=== PATIENT | female | born 2000 | race African-American/Black ===

== ENCOUNTER 2022-02-06 16:32 | Emergency (ER) | payer SELFPAY ==
[~2022-02-06] VITALS: Ht 167.6 cm; Wt 76.8 kg
[2022-02-06 16:40] VITALS: TEMP 98.6
[2022-02-06 17:48] LABS: MUCOUS Present (NOT PRESENT); PH 6 (5-8); URINE APPEARANCE Clear (CLEAR/HAZY); URINE BACTERIA Rare /hpf (NONE SEEN); URINE BILIRUBIN Negative (NEGATIVE); URINE BLOOD Negative (NEGATIVE); URINE COLOR Yellow (YELLOW); URINE GLUCOSE Negative (NEGATIVE); URINE KETONE Negative (NEGATIVE); URINE LEUKOCYTE ESTERASE Trace (NEGATIVE); URINE NITRATE Negative (NEGATIVE); URINE PROTEIN(semi-quant) Negative (NEGATIVE); URINE RBC 0-2 /hpf (0-2); URINE UROBILINOGEN Negative (NEGATIVE)
[2022-02-06 17:53] LABS: COLLECTION METHOD CLEAN CATCH
[2022-02-06 18:10] LABS: BASO % 0.5 % (0.0-2.0); EOS # 0.1 K/mm3 (0.0-0.7); EOS % 1.2 % (0.0-4.0); GRAN # 1.6 K/mm3 (1.4-6.5); GRAN % 40.2 % (42.2-75.2); HEMATOCRIT 39.3 % (35.0-45.0); HEMOGLOBIN 13.1 g/dl (12.0-15.0); LYMPH % 47.9 % (20.0-51.0); MEAN CELL VOLUME 87 fl (80.0-95.0); MEAN CORPUSCULAR HEMOGLOBIN 29 pg (26-32); MEAN CORPUSCULAR HGB CONC 33 g/dl (33.0-37.0); MEAN PLATELET VOLUME 10.4 fl (7.4-10.4); MONO # 0.4 K/mm3 (0.1-0.6); PLATELET COUNT 191 K/mm3 (130-400); RED BLOOD COUNT 4.54 M/mm3 (4.10-5.30)
[2022-02-06 18:32] LABS: ALBUMIN 3.5 gm/dL (3.5-5.0); BILIRUBIN,TOTAL 1.3 mg/dL (0.2-1.2); CALCIUM 8.3 mg/dL (8.4-10.2); POTASSIUM 3.8 mmol/L (3.5-4.5); TOTAL PROTEIN 6.2 gm/dL (6.2-8.1)
[2022-02-06] MEDS ORDERED: CEPHALEXIN250 M1 PO (19:45)
[2022-02-06 19:56] VITALS: BP 106/75; PULSE 108
== END 2022-02-06 19:56 | disposition home or self-care (01) ==
LOC: COL.ER 16:32
PROVIDERS: Emergency Medicine
DX: O26.899 Other specified pregnancy related conditions, unspecified trimester (principal); R82.71 Bacteriuria; R00.0 Tachycardia, unspecified; Z3A.00 Weeks of gestation of pregnancy not specified

== ENCOUNTER 2022-02-18 15:24 | Emergency (ER) | payer MEDICAID ==
[~2022-02-18] VITALS: Ht 167.6 cm; Wt 76.4 kg
[~2022-02-18 15:24] MED LIST: CEPHALEXIN250 M1 PO
[2022-02-18 15:57] VITALS: TEMP 98.1
[2022-02-18 16:36] LABS: HEMOGLOBIN 12.1 g/dl (12.0-15.0); MEAN CELL VOLUME 89 fl (80.0-95.0); MEAN CORPUSCULAR HEMOGLOBIN 29 pg (26-32); MEAN CORPUSCULAR HGB CONC 33 g/dl (33.0-37.0); MEAN PLATELET VOLUME 9.9 fl (7.4-10.4); PLATELET COUNT 173 K/mm3 (130-400); RED BLOOD COUNT 4.11 M/mm3 (4.10-5.30)
[2022-02-18 16:55] LABS: CALCIUM 8.4 mg/dL (8.4-10.2); CREATININE, serum 0.8 mg/dL (0.57-1.11); POTASSIUM 3.8 mmol/L (3.5-4.5)
[2022-02-18 17:01] LABS: HEMATOCRIT 36.4 % (35.0-45.0)
[2022-02-18 18:30] VITALS: BP 119/72; PULSE 82
== END 2022-02-18 18:30 | disposition home or self-care (01) ==
LOC: COL.ER 15:24
PROVIDERS: Emergency Medicine
DX: O9A.211 Injury, poisoning and certain other consequences of external causes complicating pregnancy, first trimester (principal); S39.012A Strain of muscle, fascia and tendon of lower back, initial encounter; Z3A.01 Less than 8 weeks gestation of pregnancy; X50.0XXA Overexertion from strenuous movement or load, initial encounter; Y92.59 Other trade areas as the place of occurrence of the external cause

== ENCOUNTER 2022-03-23 18:26 | Emergency (ER) | payer MEDICAID ==
[~2022-03-23] VITALS: Ht 167.6 cm; Wt 78.2 kg
[2022-03-23 18:29] VITALS: TEMP 97.2
[2022-03-23 18:54] LABS: COLLECTION METHOD CLEAN CATCH
[2022-03-23 18:59] LABS: PH 6 (5-8); SQUAMOUS EPITHELIAL 0-2 /hpf (0-10); URINE APPEARANCE Clear (CLEAR/HAZY); URINE BACTERIA Rare /hpf (NONE SEEN); URINE BILIRUBIN Negative (NEGATIVE); URINE BLOOD 1+ (NEGATIVE); URINE COLOR Straw (YELLOW); URINE GLUCOSE 1+ (NEGATIVE); URINE KETONE Negative (NEGATIVE); URINE LEUKOCYTE ESTERASE Negative (NEGATIVE); URINE NITRATE Negative (NEGATIVE); URINE PROTEIN(semi-quant) Negative (NEGATIVE); URINE RBC None Seen /hpf (0-2); URINE UROBILINOGEN Negative (NEGATIVE)
[2022-03-23] MEDS ORDERED: REGLAN 10MG10 MG/TAB PO (20:01)
[2022-03-23 20:08] VITALS: BP 129/77; PULSE 78
== END 2022-03-23 20:08 | disposition home or self-care (01) ==
LOC: COL.ER 18:26
PROVIDERS: Emergency Medicine
DX: O20.9 Hemorrhage in early pregnancy, unspecified (principal); Z3A.10 10 weeks gestation of pregnancy; Z28.310 Unvaccinated for COVID-19